=== PATIENT | female | born 1990 | race American Indian/Alaskan Native ===

== ENCOUNTER 2016-06-17 02:28 | Inpatient (IN) | payer SELFPAY ==
[~2016-06-17 02:28] MED LIST: LACTATED RINGERS 1,000 ML ONE; PITOCin/NS 20 UNIT/1000ML DRIP 20,000 MILLIUNITS/1,000 ML BAG IV ONE; POLYCILLIN/NS 2 GM/100 ML 2 GM/100 ML BAG IV ONE
[2016-06-17] MEDS ORDERED: PITOCin/NS 20 UNIT/1000ML DRIP 20 UNITS/1,000 ML BAG IV SCH (02:30)
[2016-06-17] MEDS ORDERED: POLYCILLIN/NS 2 GM/100 ML 2 GM/100 ML BAG IV ONE (02:30)
[2016-06-17] MEDS ORDERED: LACTATED RINGERS 1,000 ML IV SCH (02:30)
[2016-06-17 03:24] LABS: Basophils % (Auto) 0.5 % (0.0-1.8); Eosinophils % (Auto) 0.9 % (0.0-4.3); Hematocrit 38.5 % (30.3-42.9); Hemoglobin 12.6 gm/dl (10.1-14.3); Mean Corpuscular HGB Conc 33 % (30-34); Mean Corpuscular Hemoglobin 29 pg (28-32); Mean Corpuscular Volume 88 fl (79-97); Platelet Count 180 K/mm3 (140-440); Red Blood Count 4.36 M/mm3 (3.65-5.03); Red Cell Distribution Width 14.4 % (13.2-15.2); White Blood Count 8.9 K/mm3 (4.5-11.0)
--- NOTE | 2016-06-17 03:31 | History and Physical Report ---
History of Present Illness Date of examination: 06/17/16 Date of admission: 06/17/16 02:28 Chief complaint: contractions History of present illness: 25y/o @ 40+3 weeks presents to triage in active labor and ruptured membranes. The patient had advanced cervical dilation of 8cm on presentation. The reports she has not received care in the [place]. States her last visit was 2 months ago. She denies any complications during the . No records are currently available. Past History Past Medical History: no pertinent history Past Surgical History: other (ovarian cystectomy) Social history: single - Obstetrical History Expected Date of Delivery: 06/14/16 Actual Gestation: 40 Week(s) 3 Day(s) : 3 Para: 1 Hx # Term Pregnancies: 1 Number of Pregnancies: 0 Spontaneous Abortions: 1 Induced : 0 Number of Living Children: 1 Medications and Allergies Allergies Allergy/AdvReac Type Severity Reaction Status Date / Time No Known Allergies Allergy Unverified 06/17/16 02:54 Review of Systems All systems: negative Genitourinary: leakage of fluid, contractions - Vital Signs Vital signs: Vital Signs Pulse BP 87 147/82 06/17/16 02:36 06/17/16 02:36 Temp Pulse Resp BP Pulse Ox 95 H 137/77 90 06/17/16 03:23 06/17/16 03:22 06/17/16 03:23 - Physical Exam Breasts: Positive: deferred Cardiovascular: Regular rate Lungs: Positive: Clear to auscultation Abdomen: Positive: normal appearance Genitourinary (Female): Positive: other (carbuncles involving mons and labia majora) - Obstetrical FHR: category 1 Uterine Contraction Monitor Mode: External Results Result Diagrams: 06/17/16 02:40 Abnormal lab results 06/17/16 Range/Units 02:40 [place] % (Auto) 8.7 H (0.0-7.3) % All other labs normal. Assessment and Plan - Patient Problems (1) Insufficient care Current Visit: Yes Status: Acute Qualifiers: Trimester: T Plan to address problem: admit to L&D (2) Active labor at term Current Visit: Yes Status: Acute (3) Spontaneous rupture of amniotic membranes Current Visit: Yes Status: Acute
[2016-06-17] MEDS ORDERED: BENADRYL PO PRN (03:34)
[2016-06-17] MEDS ORDERED: TYLENOL PO PRN (03:34)
[2016-06-17] MEDS ORDERED: PERCOCET 5/325 PO PRN (03:34)
[2016-06-17] MEDS ORDERED: PHENERGAN PR PRN (03:34)
[2016-06-17] MEDS ORDERED: TUCKS PAD TP PRN (03:34)
[2016-06-17] MEDS ORDERED: LANSINOH TP PRN (03:34)
[2016-06-17] MEDS ORDERED: ZOFRAN IV PRN (03:34)
[2016-06-17] MEDS ORDERED: DERMOPLAST TP PRN (03:34)
[2016-06-17] MEDS ORDERED: DULCOLAX PR PRN (03:34)
[2016-06-17] MEDS ORDERED: MILK OF MAGNESIA PO PRN (03:34)
[2016-06-17] MEDS ORDERED: PHENERGAN PO PRN (03:34)
--- NOTE | 2016-06-17 03:34 | Procedure Note ---
OB Delivery Note - Delivery Date of Delivery: 06/17/16 Surgeon: BRAULIO HARRIS Estimated blood loss: 200cc - Vaginal Delivery presentation: vertex Delivery position: OA Intrapartum events: none Delivery induction: none Delivery monitor: external FHT Route of delivery: Delivery placenta: spontaneous Delivery cord: 3 umbilical vessels Episiotomy: none Delivery laceration: none Anesthesia: none Delivery comments: The patient progressed to complete complete +1 and post deliver a liveborn male with Apgars of 8 and 9. After delivery of the head the anterior shoulder was delivered with gentle traction. The cord was clamped and cut 2 and the infant was transferred to the warmer. The placenta delivered spontaneously intact with a three-vessel cord. No vaginal lacerations were noted. weight was 9 lbs. 8 oz. Estimated blood loss was 200 mL - A at 1 minute: 8 at 5 minutes: 9 Infant Gender: Male (weight 9 lbs. 8 oz.)
[2016-06-17] MEDS ORDERED: SODIUM CHLORIDE FLUSH SYRINGE 10 ML IV NR (04:00)
[2016-06-17 04:33] LABS: HIV-1 Antigen p24 Non React (Non React); HIVR-1/2 Ab Non React (Non React)
[2016-06-17] MEDS: MOTRIN PO SCH ×4 (05:47→23:12)
[2016-06-17 08:47] LABS: Urine Drugs of Abuse Note Disclamer
[2016-06-17 09:56] LABS: Bilirubin,Urine NEG (Negative); Blood,Urine LG (Negative); Ketones,Urine TR mg/dL (Negative); Leukocyte Esterase,Urine TR (Negative); Nitrite,Urine NEG (Negative); Urobilinogen,Urine < 2.0 mg/dL (<2.0)
[2016-06-17 10:31] LABS: RBC,Urine > 182.0 /HPF (0.0-6.0)
[2016-06-17 16:30] LABS: Hematocrit 35.5 % (30.3-42.9); Hemoglobin 11.6 gm/dl (10.1-14.3)
[2016-06-18] MEDS: MOTRIN PO SCH ×4 (05:23→23:48)
--- NOTE | 2016-06-18 14:22 | Progress Note ---
Assessment and Plan PPD 1 s/p with no care. Doing well. to stay 48 hours for GBS unknown status. Plan for discharge tomorrow. Subjective - Subjective Date of service: 06/18/16 Principal diagnosis: S/p , No care Patient reports: appetite normal, voiding normally, pain well controlled, ambulating normally : doing well Objective - Vital Signs Latest vital signs: Vital Signs Temp Pulse Resp BP 06/18/16 09:47 98.3 F 78 16 108/68 06/18/16 00:35 98.6 F 67 16 121/70 06/17/16 20:40 98.6 F 80 22 111/80 06/17/16 15:47 98.7 F 87 16 119/64 Intake and Output 06/17/16 06/18/16 06/18/16 22:59 06:59 14:59 Intake Total 550 Balance 550 Intake: Oral 300 Intake, Free Water 250 Other: Total, Intake Amount 300 - Exam Cardiovascular: Present: Regular rate, Normal S1, Normal S2 Lungs: Present: Clear to auscultation, Normal air movement Abdomen: Present: normal appearance, soft Uterus: Present: normal, firm, fundal height below umbilicus Extremities: Present: normal Incision: Present: normal, dry, intact
--- NOTE | 2016-06-18 14:26 | Discharge Summary ---
Providers - Providers Date of Admission: 06/17/16 02:28 Date of discharge: 06/19/16 Attending physician: BELINDA CONTEH MD Primary care physician: BELINDA CONTEH MD Hospitalization Reason for admission: active labor, other (no care) Delivery: Episiotomy: none Laceration: none complications: none Discharge diagnosis: IUP at term delivered [place] baby: male Disposition: DISCHARGED TO HOME OR SELFCARE Plan - Discharge Medications Prescriptions: Ibuprofen [Motrin 600 MG tab] 600 mg PO Q6H #30 tablet Pnv with Ca,No.72/Iron/FA [ Plus Tablet] 1 each PO QDAY #30 tablet - Provider Discharge Summary Activity: routine, no sex for 6 weeks, no heavy lifting 4 weeks, no strenuous exercise Diet: routine Instructions: routine Additional instructions: [] Smoking cessation referral if applicable(refer to patient education folder for contact #) [] Refer to [facility] Booklet Call your doctor immediately for: * Fever > 100.5 * Heavy vaginal bleeding ( >1 pad per hour) * Severe persistent headache * Shortness of breath * Reddened, hot, painful area to leg or breast * Drainage or odor from incision. * Keep incision clean and dry at all times and follow doctor's instructions regarding bathing/showering - Follow up plan Follow up: BELINDA CONTEH MD [Primary Care Provider] - 6 Weeks
[2016-06-19] MEDS: MOTRIN PO SCH (05:27)
[2016-06-19 15:50] VITALS: BP 149/82
== END 2016-06-19 13:25 | disposition home or self-care (01) | DRG 775 ==
LOC: LD 02:28 → OB 05:03
PROVIDERS: ADMIT Obstetrics & Gynecology; ATTEND Obstetrics & Gynecology
PROC: 10E0XZZ Delivery of Products of Conception, External Approach (ICD-10-PCS; principal; 2016-06-17)
DX: O80 Encounter for full-term uncomplicated delivery (principal); Z3A.40 40 weeks gestation of pregnancy; Z37.0 Single live birth; Z90.6 Acquired absence of other parts of urinary tract; O09.33 Supervision of pregnancy with insufficient antenatal care, third trimester
CPT/HCPCS: 36415; 80307; 81001; 85014; 85018; 85025; 85660; 86592; 86706; 86762; 86803; 86850; 86900; 86901; 87806; 99211; G0463; J0290; J2590; J7120